=== PATIENT | male | born 1995 | race Caucasian/White ===

== ENCOUNTER 2018-06-23 14:38 | Emergency (ER) | payer BC ==
[2018-06-23] MEDS ORDERED: NS 500 ML IV ONE (15:25)
--- NOTE | 2018-06-23 15:25 | EDPHY ---
H & P Time Seen by Provider: 06/23/18 15:02 HPI/ROS: CHIEF COMPLAINT: Chest pain HISTORY OF PRESENT ILLNESS: Patient is a 22-year-old male with no past medical history presents to the emergency department with left-sided chest pain. Patient's symptoms started on Thursday. He initially developed fever and chills. On Thursday night/Thursday morning he began to developed left-sided chest pain. He also had multiple episodes of nonbloody emesis daily. He reports approximately 4 episodes per day. He was seen by [facility] on Thursday. There he had a negative chest x-ray. He is placed on Levaquin. Patient's symptoms continued. He went to an outside urgent care and was sent to the emergency department for further evaluation. The patient denies any recent travel. No leg pain or swelling. Patient's pain is slightly worse with movement. He has had no abdominal pain. REVIEW OF SYSTEMS: My complete review of systems is negative except as mentioned in the HPI. Past Medical/Surgical History: Negative Social history: The patient is a student at . Smoking Status: Never smoked Physical Exam: Vitals noted. GENERAL: Well-appearing, in no acute distress, alert. HEENT: Eyes normal to inspection, normal pharynx, no signs of dehydration. NECK: Normal, supple. RESPIRATORY: Clear to auscultation bilaterally, no rales, rhonchi or wheezing. Chest wall: Normal to appearance. No tenderness to palpation. CVS: Regular rate and rhythm, no rubs, murmurs, or gallops. ABDOMEN: Soft, nontender, nondistended. BACK: Normal to inspection, no CVA tenderness. SKIN: Normal color, no rash, warm, dry. No pallor. EXTREMITIES: No pedal edema, no calf tenderness, no Homans sign or cords, no joint swelling. NEURO/PSYCH: Alert and oriented, normal mood and affect, normal motor sensory exam. Constitutional: Initial Vital Signs Temperature (C) 36.6 C 06/23/18 14:41 Heart Rate 94 06/23/18 14:41 Respiratory Rate 18 06/23/18 14:41 Blood Pressure 134/83 H 06/23/18 14:41 O2 Sat (%) 97 06/23/18 14:41 O2 Delivery Mode Room Air Allergies/Adverse Reactions: No Known Allergies Allergy (Unverified 06/23/18 14:41) Home Medications: Medication Instructions Recorded Ibuprofen 600 mg PO Q6 #15 tablet 06/23/18 Levaquin 06/23/18 Medical Decision Making - Diagnostics Imaging Results: Imaging Impressions Chest X-Ray 06/23/18 15:25 Impression: Normal. Chest/Thorax CTA 06/23/18 16:10 Impression: No acute central or segmental pulmonary embolus. Findings and recommendations discussed with СЕРГЕЙ Sood ALEXANDER at 1649 hour, . ED Course/Re-evaluation: In the emergency department I discussed possible etiologies with the patient. I answered all his questions. IV was placed. Patient had EKG, chest x-ray and laboratory studies were ordered. Patient given Toradol 30 mg IV for pain control. EKG shows normal sinus rhythm, normal rate, normal axis, normal intervals. There are no ST or T-wave abnormalities. EKG is normal as interpreted by me. Patient's CBC and chemistry unremarkable. Troponin was negative. Patient's D- dimer is elevated at 1.06. I discussed the results with the patient. On recheck he states his pain was much better. Because of his elevated D-dimer CT angiogram was ordered. I discussed this with the patient and answered all his questions. CT angiogram: Please refer the dictated report. No acute disease noted. I rechecked the patient discussed results. I answered all his questions. Patient was feeling much better. His breath sounds were clear to auscultation bilaterally with no respiratory distress. He is given warnings prior to leaving. He will return with worsening symptoms. Differential Diagnosis: My differential includes but not limited to ACS, acute [place], pericarditis, myocarditis, dissection, aneurysm pneumonia, bronchitis, pulmonary embolus, pleurisy, pancreatitis, cholecystitis - Data Points Laboratory Results: Laboratory Results 06/23/18 15:10 06/23/18 15:10 06/23/18 06/23/18 06/23/18 15:48 15:10 15:10 WBC RBC Hgb Hct MCV MCH MCHC RDW Plt Count MPV Neut % (Auto) Lymph % (Auto) [place] % (Auto) Eos % (Auto) Baso % (Auto) Nucleat RBC Rel Count Absolute Neuts (auto) Absolute Lymphs (auto) Absolute Monos (auto) Absolute Eos (auto) Absolute Basos (auto) Absolute Nucleated RBC Immature Gran % Immature Gran # D-Dimer 1.06 ug/mLFEU H ug/mLFEU (0.00-0.50) Sodium 139 mEq/L mEq/L (135-145) Potassium 4.3 mEq/L mEq/L (3.3-5.0) Chloride 98 mEq/L mEq/L (97-110) Carbon Dioxide 24 mEq/l mEq/l (22-31) Anion Gap 17 mEq/L H mEq/L (8-16) BUN 16 mg/dL mg/dL (7-23) Creatinine 0.9 mg/dL mg/dL (0.7-1.3) Estimated GFR > 60 Glucose 98 mg/dL mg/dL (70-100) Calcium 9.9 mg/dL mg/dL (8.5-10.4) Total Bilirubin 1.2 mg/dL mg/dL (0.1-1.4) Conjugated Bilirubin 0.3 mg/dL mg/dL (0.0-0.5) Unconjugated Bilirubin 0.9 mg/dL mg/dL (0.0-1.1) AST 24 IU/L IU/L (17-59) ALT 28 IU/L IU/L (21-72) Alkaline Phosphatase 76 IU/L IU/L (38-126) POC Troponin I 0.01 ng/mL ng/mL (0.00-0.08) Total Protein 7.8 g/dL g/dL (6.3-8.2) Albumin 4.6 g/dL g/dL (3.5-5.0) Lipase 49 IU/L IU/L (23-300) 06/23/18 15:10 WBC 7.67 10^3/uL 10^3/uL (3.80-9.50) RBC 5.91 10^6/uL 10^6/uL (4.40-6.38) Hgb 18.3 g/dL H g/dL (13.7-17.5) Hct 51.2 % H % (40.0-51.0) MCV 86.6 fL fL (81.5-99.8) MCH 31.0 pg pg (27.9-34.1) MCHC 35.7 g/dL g/dL (32.4-36.7) RDW 12.0 % % (11.5-15.2) Plt Count 188 10^3/uL 10^3/uL (150-400) MPV 10.3 fL fL (8.7-11.7) Neut % (Auto) 74.9 % H % (39.3-74.2) Lymph % (Auto) 14.0 % L % (15.0-45.0) [place] % (Auto) 10.2 % % (4.5-13.0) Eos % (Auto) 0.1 % L % (0.6-7.6) Baso % (Auto) 0.5 % % (0.3-1.7) Nucleat RBC Rel Count 0.0 % % (0.0-0.2) Absolute Neuts (auto) 5.75 10^3/uL 10^3/uL (1.70-6.50) Absolute Lymphs (auto) 1.07 10^3/uL 10^3/uL (1.00-3.00) Absolute Monos (auto) 0.78 10^3/uL 10^3/uL (0.30-0.80) Absolute Eos (auto) 0.01 10^3/uL L 10^3/uL (0.03-0.40) Absolute Basos (auto) 0.04 10^3/uL 10^3/uL (0.02-0.10) Absolute Nucleated RBC 0.00 10^3/uL 10^3/uL (0-0.01) Immature Gran % 0.3 % % (0.0-1.1) Immature Gran # 0.02 10^3/uL 10^3/uL (0.00-0.10) D-Dimer Sodium Potassium Chloride Carbon Dioxide Anion Gap BUN Creatinine Estimated GFR Glucose Calcium Total Bilirubin Conjugated Bilirubin Unconjugated Bilirubin AST ALT Alkaline Phosphatase POC Troponin I Total Protein Albumin Lipase Medications Given: Discontinued Medications Sodium Chloride (Ns) 500 mls @ 1,000 mls/hr IV EDNOW ONE PRN Reason: Protocol Stop: 06/23/18 15:54 Last Admin: 06/23/18 15:45 Dose: 500 mls Point of Care Test Results: Chemistry 06/23/18 15:48 POC Troponin I 0.01 ng/mL ng/mL (0.00-0.08) Departure - Departure Disposition: Home, Routine, Self-Care Clinical Impression: Chest pain Qualifiers: Chest pain type: unspecified Qualified Code(s): R07.9 - Chest pain, unspecified Condition: Good Instructions: Chest Pain (ED) Additional Instructions: Return with increasing shortness of breath, chest pain or any other concerns. Referrals: [facility] Villeg[facility],. [Clinic] - 5-7 days, call for appt. Prescriptions: Ibuprofen 600 mg PO Q6 #15 tablet
[2018-06-23 15:40] LABS: PLATELET COUNT 188 10^3/uL (150-400)
[2018-06-23] MEDS ORDERED: IOPAMIDOL (ISOVUE 370) 100 ML BTL IV ONE (16:16)
[2018-06-23 17:37] VITALS: BP 112/85
--- NOTE | 2018-07-02 06:45 | CPEKG ---
Test Reason : OPEN Blood Pressure : / mmHG Vent. Rate : 082 BPM Atrial Rate : 082 BPM P-R Int : 157 ms QRS Dur : 104 ms QT Int : 368 ms P-R-T Axes : 059 055 049 degrees QTc Int : [address] elev, probable normal early repol pattern Confirmed by Kodak Shields ([id number] on 07/02/2018 6:45:26 AM Referred By: Confirmed By:Kodak Shields
== END 2018-06-23 17:35 | disposition home or self-care (01) ==
DX: R07.9 Chest pain, unspecified (principal); E86.9 Volume depletion, unspecified
CPT/HCPCS: 84484-PO; Q9967

== ENCOUNTER 2018-06-24 12:53 | Emergency (ER) | payer BC ==
--- NOTE | 2018-06-24 13:42 | EDPHY ---
H & P Time Seen by Provider: 06/24/18 13:23 HPI/ROS: CHIEF COMPLAINT: Chest pain HISTORY OF PRESENT ILLNESS: Patient is a 22 year old male who presents to the emergency department with ongoing"stomach pain."I saw the patient yesterday." We discussed his plan of care. Patient states he felt better after leaving the emergency department. He went to the store and but soup. After taking a bite of his soup he developed epigastric pain. He states he has had 4 episodes of nonbloody emesis. He continues to have epigastric pain radiating to his esophagus. The patient states"I think it's my stomach."It is slightly different from the pain he had yesterday. Yesterday the pain was more over his left chest. This is more in the epigastrium. He denies fevers or chills. No shortness of breath or cough. REVIEW OF SYSTEMS: My complete review of systems is negative except as mentioned in the HPI. Past Medical/Surgical History: Denies Past surgical history: Negative Smoking Status: Never smoked Physical Exam: 37.2, 150/85, 109, 16, 93% on room air GENERAL: No acute distress, alert. HEENT: Eyes normal to inspection, normal pharynx, moist mucous membranes. NECK: Normal, supple. RESPIRATORY: Clear to auscultation bilaterally, no rales, rhonchi or wheezing. No chest wall tenderness palpation. No rash. CVS: Regular rate and rhythm, no rubs, murmurs, or gallops. ABDOMEN: Soft, nontender, nondistended, no organomegaly. Benign BACK: Normal to inspection, no CVA tenderness. SKIN: Normal color, no rash, warm, dry. No pallor. EXTREMITIES: No pedal edema, no calf tenderness, no Homans sign or cords, no joint swelling. NEURO/PSYCH: Alert and oriented, normal mood and affect, normal motor sensory exam. Constitutional: Initial Vital Signs Temperature (C) 37.2 C 06/24/18 12:56 Heart Rate 109 H 06/24/18 12:56 Respiratory Rate 16 06/24/18 12:56 Blood Pressure 150/85 H 06/24/18 12:56 O2 Sat (%) 93 06/24/18 12:56 O2 Delivery Mode Room Air Allergies/Adverse Reactions: No Known Allergies Allergy (Unverified 06/23/18 14:41) Home Medications: Medication Instructions Recorded Ibuprofen 600 mg PO Q6 #15 tablet 06/23/18 Levaquin 06/23/18 Famotidine [Pepcid 20 MG (*)] 20 mg PO BID #10 tab 06/24/18 Ondansetron Odt [Zofran Odt 4 mg 4 mg PO Q4PRN PRN #7 tab 06/24/18 (*)] Medical Decision Making ED Course/Re-evaluation: In the emergency department I discussed possible etiologies with the patient. I answered all his questions. An IV was placed. Patient was given normal saline 1 L IV for hydration. Patient was given Zofran 4 mg IV for his reported nausea vomiting. Patient was given a GI cocktail. EKG shows normal sinus rhythm, normal rate, normal axis, normal intervals. There are no ST or T-wave abnormalities. EKG is normal as interpreted by me. CBC is normal. Chemistries unremarkable. LFTs are normal. Rechecked the patient. He is feeling better. No significant distress on exam. Patient was given warnings. He will follow up with Gastroenterology in work. Patient will take Pepcid as prescribed. He is also given a prescription for Zofran. I will take Maalox as needed. Patient will return with worsening symptoms. Of note, the patient self discontinued his Levaquin. Differential Diagnosis: My differential includes but is not limited to GERD, peptic ulcer disease, perforation, pancreatitis, cholecystitis, PE, dissection, aneurysm - Data Points Laboratory Results: Laboratory Results 06/24/18 14:00 06/24/18 14:00 06/24/18 06/24/18 06/24/18 14:00 14:00 14:00 WBC 5.81 10^3/uL 10^3/uL (3.80-9.50) RBC 5.55 10^6/uL 10^6/uL (4.40-6.38) Hgb 17.3 g/dL g/dL (13.7-17.5) Hct 48.3 % % (40.0-51.0) MCV 87.0 fL fL (81.5-99.8) MCH 31.2 pg pg (27.9-34.1) MCHC 35.8 g/dL g/dL (32.4-36.7) RDW 11.9 % % (11.5-15.2) Plt Count 202 10^3/uL 10^3/uL (150-400) MPV 9.9 fL fL (8.7-11.7) Neut % (Auto) 68.4 % % (39.3-74.2) Lymph % (Auto) 16.4 % % (15.0-45.0) [place] % (Auto) 14.1 % H % (4.5-13.0) Eos % (Auto) 0.3 % L % (0.6-7.6) Baso % (Auto) 0.5 % % (0.3-1.7) Nucleat RBC Rel Count 0.0 % % (0.0-0.2) Absolute Neuts (auto) 3.97 10^3/uL 10^3/uL (1.70-6.50) Absolute Lymphs (auto) 0.95 10^3/uL L 10^3/uL (1.00-3.00) Absolute Monos (auto) 0.82 10^3/uL H 10^3/uL (0.30-0.80) Absolute Eos (auto) 0.02 10^3/uL L 10^3/uL (0.03-0.40) Absolute Basos (auto) 0.03 10^3/uL 10^3/uL (0.02-0.10) Absolute Nucleated RBC 0.00 10^3/uL 10^3/uL (0-0.01) Immature Gran % 0.3 % % (0.0-1.1) Immature Gran # 0.02 10^3/uL 10^3/uL (0.00-0.10) PT 14.2 SEC SEC (12.0-15.0) INR 1.08 (0.83-1.16) APTT 29.8 SEC SEC (23.0-38.0) Sodium 141 mEq/L mEq/L (135-145) Potassium 4.6 mEq/L mEq/L (3.3-5.0) Chloride 98 mEq/L mEq/L (97-110) Carbon Dioxide 27 mEq/l mEq/l (22-31) Anion Gap 16 mEq/L mEq/L (8-16) BUN 15 mg/dL mg/dL (7-23) Creatinine 0.9 mg/dL mg/dL (0.7-1.3) Estimated GFR > 60 Glucose 103 mg/dL H mg/dL (70-100) Calcium 9.8 mg/dL mg/dL (8.5-10.4) Total Bilirubin 1.0 mg/dL mg/dL (0.1-1.4) Conjugated Bilirubin 0.3 mg/dL mg/dL (0.0-0.5) Unconjugated Bilirubin 0.7 mg/dL mg/dL (0.0-1.1) AST 34 IU/L IU/L (17-59) ALT 35 IU/L IU/L (21-72) Alkaline Phosphatase 67 IU/L IU/L (38-126) Total Protein 7.9 g/dL g/dL (6.3-8.2) Albumin 4.6 g/dL g/dL (3.5-5.0) Lipase 44 IU/L IU/L (23-300) Medications Given: Discontinued Medications Al Hydroxide/Mg Hydroxide (Maalox Susp) 30 ml PO ONCE ONE Stop: 06/24/18 13:45 Last Admin: 06/24/18 14:02 Dose: 30 ml Hyoscyamine Sulfate (Levsin, Hyomax-Sl) 0.25 mg PO ONCE ONE Stop: 06/24/18 13:45 Last Admin: 06/24/18 14:03 Dose: 0.25 mg Sodium Chloride (Ns) 1,000 mls @ 0 mls/hr IV EDNOW ONE; Wide Open PRN Reason: Protocol Stop: 06/24/18 13:45 Last Admin: 06/24/18 14:03 Dose: 1,000 mls Lidocaine (Lidocaine 2% Viscous) 15 ml PO ONCE ONE Stop: 06/24/18 13:45 Last Admin: 06/24/18 14:02 Dose: 15 ml Ondansetron HCl (Zofran) 4 mg IVP EDNOW ONE Stop: 06/24/18 13:45 Last Admin: 06/24/18 14:03 Dose: 4 mg Departure - Departure Disposition: Home, Routine, Self-Care Clinical Impression: Abdominal pain Qualifiers: Abdominal location: epigastric Qualified Code(s): R10.13 - Epigastric pain Condition: Good Instructions: Acute Abdominal Pain (ED) Additional Instructions: Return with increasing pain, fever, recurrent vomiting or any other concerns. Take Pepcid daily as prescribed. Use Maalox as needed for stomach burning sensation. Use your nausea medicine as needed. Call to make an appointment with a district manager primary care sales. You been given contact information for their office. Referrals: [facility],. [Clinic] - 2-3 days without fail Prescriptions: Famotidine [Pepcid 20 MG (*)] 20 mg PO BID #10 tab Ondansetron Odt [Zofran Odt 4 mg (*)] 4 mg PO Q4PRN PRN #7 tab PRN Reason: For Nausea & Vomiting
[2018-06-24] MEDS: LIDOCAINE 2% VISCOUS 15 ML UDCUP PO ONE (14:02)
[2018-06-24] MEDS: MAG HYDROX/AL HYDROX/SIMETH 30 ML UDCUP PO ONE (14:02)
[2018-06-24] MEDS: HYOSCYAMINE SULFATE 0.125 MG TAB PO ONE (14:03)
[2018-06-24] MEDS: NS 1,000 ML IV ONE (14:03)
[2018-06-24] MEDS: ONDANSETRON 4 MG/2 ML VIAL IVP ONE (14:03)
[2018-06-24] MEDS ORDERED: HYOSCYAMINE SULFATE 0.125 MG TAB ONE (14:08)
[2018-06-24 14:14] LABS: PLATELET COUNT 202 10^3/uL (150-400)
[2018-06-24 14:22] LABS: INR 1.08 (0.83-1.16); PROTIME(PATIENT) 14.2 SEC (12.0-15.0)
[2018-06-24 15:20] VITALS: BP 160/84
--- NOTE | 2018-06-24 21:02 | CPEKG ---
Test Reason : OPEN Blood Pressure : / mmHG Vent. Rate : 079 BPM Atrial Rate : 080 BPM P-R Int : 160 ms QRS Dur : 096 ms QT Int : 377 ms P-R-T Axes : 069 069 057 degrees QTc Int : 433 ms Sinus rhythm Confirmed by Lety Us ([id number]) on 06/24/2018 9:02:17 PM Referred By: Confirmed By:Lety Us
== END 2018-06-24 15:18 | disposition home or self-care (01) ==
DX: R10.13 Epigastric pain (principal); E86.9 Volume depletion, unspecified
CPT/HCPCS: 96374; J2405

== ENCOUNTER 2018-06-25 13:29 | Inpatient (IN) | payer BC ==
[2018-06-25] MEDS ORDERED: NS 1,000 ML IV ONE (13:51)
[2018-06-25] MEDS ORDERED: FAMOTIDINE 20 MG/NACL 50 ML IV ONE (13:51)
[2018-06-25] MEDS ORDERED: ONDANSETRON 4 MG/2 ML VIAL IVP ONE (13:51)
[2018-06-25] MEDS ORDERED: MAG HYDROX/AL HYDROX/SIMETH 30 ML UDCUP PO ONE (13:51)
[2018-06-25] MEDS ORDERED: LIDOCAINE 2% VISCOUS 15 ML UDCUP PO ONE (13:51)
[2018-06-25] MEDS ORDERED: HYOSCYAMINE SULFATE 0.125 MG TAB PO ONE (13:51)
--- NOTE | 2018-06-25 13:51 | EDPHY ---
H & P Time Seen by Provider: 06/25/18 13:36 HPI/ROS: CHIEF COMPLAINT: Epigastric pain the HISTORY OF PRESENT ILLNESS: Patient is a 22-year-old male who presents emergency department with ongoing epigastric pain. The patient was seen last 2 days by me for similar symptoms. The 1st day he had mild left-sided chest pain. At that time he had negative CT angiogram and was ultimately discharged home after feeling better. Yesterday came in with epigastric pain. His laboratory studies were unremarkable. He felt better after receiving a GI cocktail. He was given follow-up with Gastroenterology. Today he returns with ongoing epigastric discomfort. He has had multiple episodes of nonbloody vomiting. Patient denies fevers or chills. No chest pain or shortness of breath. REVIEW OF SYSTEMS: My complete review of systems is negative except as mentioned in the HPI. Past Medical/Surgical History: Negative Past surgical history: Negative Social history: Patient is a student at [employer] Smoking Status: Never smoked Physical Exam: 36.6, 125/70, 81, 16, 98% on room air GENERAL: No acute distress, alert. HEENT: Eyes normal to inspection, normal pharynx, no signs of dehydration. NECK: [No thyromegaly, no lymphadenopathy, supple. RESPIRATORY: Clear to auscultation bilaterally, no rales, rhonchi or wheezing. CVS: Regular rate and rhythm, no rubs, murmurs, or gallops. ABDOMEN: Soft, mild epigastric tenderness to palpation with no rebound or guarding, nondistended, no organomegaly. BACK: Normal to inspection, no CVA tenderness. SKIN: Normal color, no rash, warm, dry. No pallor. EXTREMITIES: No pedal edema, no calf tenderness, no Homans sign or cords, no joint swelling. NEURO/PSYCH: Alert and oriented, normal mood and affect, normal motor sensory exam. Constitutional: Initial Vital Signs Temperature (C) 36.6 C 06/25/18 13:32 Heart Rate 81 06/25/18 13:32 Respiratory Rate 16 06/25/18 13:32 Blood Pressure 125/70 H 06/25/18 13:32 O2 Sat (%) 98 06/25/18 13:32 O2 Delivery Mode Room Air Allergies/Adverse Reactions: No Known Allergies Allergy (Verified 06/25/18 13:31) Home Medications: Medication Instructions Recorded Pepcid 06/25/18 Zofran Odt 4 mg (*) 06/25/18 Medical Decision Making ED Course/Re-evaluation: In the emergency department discussed possible etiologies with the patient I answered all his questions. An IV was placed. Laboratory studies were obtained. Ultrasound of the right upper quadrant was ordered. I discussed the case with the patient's parents at his request. I answered all their questions. Differential Diagnosis: My differential includes but not limited to pancreatitis, cholecystitis, cholangitis, hiatal hernia, GERD, peptic ulcer disease, obstruction, perforation , dissection, aneurysm, PE, pneumonia, bronchitis Departure - Departure Disposition: [facility] Inpatient Acute Clinical Impression: Abdominal pain Qualifiers: Abdominal location: epigastric Qualified Code(s): R10.13 - Epigastric pain Condition: Good
[2018-06-25 14:01] LABS: PLATELET COUNT 210 10^3/uL (150-400)
[2018-06-25 14:48] LABS: INR 1.07 (0.83-1.16); PROTIME(PATIENT) 14.1 SEC (12.0-15.0)
[2018-06-25] MEDS ORDERED: PROMETHAZINE HCL 25 MG/ML INJ IVP PRN (15:44)
[2018-06-25] MEDS ORDERED: IBUPROFEN 200 MG TAB PO PRN (15:44)
[2018-06-25] MEDS: LR 1,000 ML IV SCH (17:45)
--- NOTE | 2018-06-25 18:58 | GHP ---
[f rep st] HISTORY AND PHYSICAL DATE OF ADMISSION: 06/25/2018 PRIMARY CARE PROVIDER: [facility]. CHIEF COMPLAINT: Epigastric pain. HISTORY OF PRESENT ILLNESS: The patient is a pleasant 22-year-old gentleman with no major past medic al history who has presented to the emergency room 3 times over the past several days with complaints of epigastric pain. The patient states that he had viral-like symptoms approximately 1 week ago, de scribed as fever, chills, nasal congestion and cough. These symptoms have largely abated. He also d eveloped though, in association with these symptoms, nausea with vomiting. He states that he has vom ited approximately 4 times over the past 4 days. The emesis has been nonbloody in nature. He did no te having yesterday a bowel movement that appeared black in nature, but there has been no significant diarrhea or bloody stools. In regard to the epigastric pain, he does not necessarily note a definit e positional nature where it worsens when he lies down flat, which would be potentially consistent wi th pericarditis. This diagnosis was entertained and he was tried on NSAIDs over the past few days. He states, however, he was not taking any NSAIDs otherwise in the prior weeks. He also describes a d iscomfort when he is drinking liquids that goes down his esophagus and into his stomach. There has b een no right upper quadrant abdominal pain. With the persistent nature of his symptoms and uncertain diagnosis he is being admitted for further evaluation and treatment. PAST MEDICAL HISTORY: No major past medical history. PAST SURGICAL HISTORY: No major past surgical history. MEDICATIONS: No current prescribed medications. ALLERGIES: No known drug allergies. FAMILY HISTORY: Mother and father are both living and reportedly healthy. There is no cardiac or in testinal issues that he is aware of that run in the family. No history of Helicobacter pylori in the family is known either. SOCIAL HISTORY: Patient is a nonsmoker. He is currently a student at . He denies any daily regul ar use of marijuana. REVIEW OF SYSTEMS: CONSTITUTIONAL: Positive for fevers and chills, which have resolved. ENT: Posi tive for recent upper respiratory-like illness. CARDIOVASCULAR: No complaints of palpitations or sy ncope. Chest pain is localized around the lower rib cage just left of the sternum. RESPIRATORY: No complaints of shortness of breath or pleuritic-type chest pains. He denies any definite positional change in his chest pain with lying down flat or sitting upright. GI: No history of any GI bleeds o r H pylori. Otherwise as detailed above in the HPI. : No report of any difficulty with urination . NEUROLOGIC: No complaints of any headaches or focal weakness. HEMATOLOGIC: No history of any de ep vein thrombosis or pulmonary embolism. PSYCHIATRIC: No history of anxiety or depression. ENDOCR INE: No heat intolerance or polyuria. SKIN: No new skin rashes. MUSCULOSKELETAL: No focal joint pains. PHYSICAL EXAM: VITAL SIGNS: Temperature 36.6, blood pressure 125/70, heart rate 81, respirations 16 , saturating 98% on room air. GENERAL: Patient appears comfortable. He is awake, alert, conversant , no acute distress. HEENT: Extraocular movements appear intact. There is no scleral icterus appar ent. NECK: Supple. No thyroid enlargement noted. CHEST: Clear to auscultation with normal respir atory effort. HEART: Regular. No murmurs appreciated. No rubs noted. No chest discomfort elicite d when lying down flat in his bed. ABDOMEN: Soft, nontender, nondistended. Normal bowel sounds. H e tolerated good pressure at the epigastrium. : No Argueta catheter in place. EXTREMITIES: No sig nificant pitting edema or calf pain with palpation. NEUROLOGIC: Cranial nerves 2 through 12 grossly intact with 5 out of 5 strength in extremities. LABS: White blood cell count 6, hemoglobin 16, platelets 210. INR 1.0. Sodium 142, potassium 4.2, chloride 100, bicarb 26, BUN 14, creatinine 0.9, glucose of 99, AST 28, ALT 34, alkaline phosphatase 64, bilirubin 1.0, lipase 66. ASSESSMENT/PLAN: 1. Epigastric pain--the patient localized the pain around the rib cage, left of the sternum, but thierno per down in his body, not superficially and there is no pain elicited with palpation along his rib ca ge. He has had a CT angiography of chest, which does not show any evidence of pulmonary emboli and n o other concerning findings otherwise, but I did consider the possibility of pericarditis. There may be some hint of slight ST-segment elevations in his ECG. He did have a negative troponin on his sarina or hospitalization, but did have a recent upper respiratory illness, which could be associated with p ericarditis. Other considerations include esophagitis with his recent nausea and vomiting, also renetta farzad ulcer or upper gastrointestinal bleeding in light of the melena described. I reviewed the case w ith Dr. Helton with Gastroenterology and we will place him on intravenous Protonix overnight and reas sess his symptoms tomorrow morning. We will also repeat a hemoglobin tomorrow to evaluate for any si gnificant drop. An echocardiogram has also been ordered to evaluate for any significant pericardial effusion or evidence of potential pericarditis. I have ordered a Helicobacter pylori stool antigen t est and we will keep him n.p.o. after midnight in case we do end up proceeding with endoscopy tomorro w. 2. Melena--possibly related to upper gastrointestinal bleed. Recheck hemoglobin in the morning. 3. Nausea--p.r.n. Phenergan. 4. Deep venous thrombosis prophylaxis--low risk, so will hold heparin, Lovenox, especially in light of concern for bleeding. DISPOSITION: I will admit him under observation status. /[id number]/MODL
[2018-06-25] MEDS: PANTOPRAZOLE SODIUM 40 MG VIAL IVP SCH (20:00)
[2018-06-26] MEDS: LR 1,000 ML IV SCH ×2 (02:09→09:04)
[2018-06-26 05:44] LABS: PLATELET COUNT 222 10^3/uL (150-400)
[2018-06-26] MEDS: PANTOPRAZOLE SODIUM 40 MG VIAL IVP SCH ×2 (09:04→21:01)
[2018-06-26] MEDS ORDERED: LR 1,000 ML IV ONE (09:55)
[2018-06-26] MEDS ORDERED: PROPOFOL/EMULSION 500 MG/50 ML BOTTLE IV ONE (10:13)
[2018-06-26] MEDS ORDERED: DEXAMETHASONE 4 MG/ML VIAL IVP PRN (10:21)
[2018-06-26] MEDS ORDERED: ONDANSETRON 4 MG/2 ML VIAL IVP PRN (10:21)
[2018-06-26] MEDS ORDERED: fentaNYL 100 MCG/2 ML INJ IVP PRN (10:21)
[2018-06-26] MEDS ORDERED: NALOXONE HCL 0.4 MG/ML INJ IVP PRN (10:21)
[2018-06-26] MEDS ORDERED: ALBUTEROL 3 ML DEYVIAL IH PRN (10:21)
--- NOTE | 2018-06-26 10:21 | PDANEPAE ---
ANE History of Present Illness here for EGD ANE Past Medical History - Cardiovascular History Hx Hypertension: No Hx Arrhythmias: No Hx Chest Pain: No Hx Coronary Artery / Peripheral Vascular Disease: No Hx CHF / Valvular Disease: No Hx Palpitations: No - Pulmonary History Hx COPD: No Hx Asthma/Reactive Airway Disease: No Hx Recent Upper Respiratory Infection: No Hx Oxygen in Use at Home: No Hx Sleep Apnea: No - Endocrine History Hx Diabetes: No Hypothyroid: No Hyperthyroid: No - Renal History Hx Renal Disorders: No - Liver History Hx Hepatic Disorders: No - Chronic Pain History Chronic Pain: No ANE Review of Systems Review of systems is: negative Review of Systems: - Exercise capacity Exercise capacity: <4 METS ANE Patient History - Allergies Allergies/Adverse Reactions: No Known Allergies Allergy (Verified 06/25/18 13:31) - Home Medications Home medications: home medication list seen and reviewed Home Medications: Famotidine [Pepcid 20 MG (*)] 20 mg PO BID 06/25/18 [Last Taken 06/25/18] Ibuprofen [Motrin (*)] 600 mg PO QID PRN 06/25/18 [Last Taken 06/22/18] Ondansetron Odt [Zofran Odt 4 mg (*)] 4 mg PO Q4HRS PRN 06/25/18 [Last Taken 13:00] - NPO status NPO Status: no food or drink >8 hours - Smoking Hx Smoking Status: Never smoked ANE Labs/Vital Signs - Labs Result Diagrams: 06/26/18 05:05 06/26/18 05:05 - Vital Signs Vital Signs: reviewed preoperatively; see RN documention for details Blood Pressure: 120/57 Heart Rate: 73 Respiratory Rate: 97 O2 Sat (%): 94 Height: 185.42 cm Weight: 75.75 kg ANE Physical Exam - Airway Neck exam: FROM Mallampati Score: Class 1 - Pulmonary Pulmonary: no respiratory distress - Cardiovascular Cardiovascular: regular rate and rhythym - ASA Status ASA Status: I ANE Anesthesia Plan Anesthesia Plan: GA with mask
[2018-06-26] MEDS ORDERED: PROPOFOL 200 MG/20 ML VIAL ONE ×2 (10:41→10:44)
--- NOTE | 2018-06-26 10:55 | GIREPORT ---
[facility] Surgical Services - Endoscopy Department Patient Name: Betzy Hi Procedure Date: 06/26/2018 10:07 AM Patient Type: Inpatient Attending MD/ ER Physician: Virgil Yoder MD Procedure: Upper GI endoscopy Indications: Unexplained chest pain, Nausea with vomiting Providers: Virgil Yoder MD Medicines: Propofol per Anesthesia Complications: No immediate complications. Description of Procedure: After obtaining informed consent, the endoscope was passed under direct vision. Throughout the procedure, the patient's blood pressure, pulse, and oxygen saturations were monitored continuously. The Endoscope was intro duced through the mouth, and advanced to the second part of duodenum. The [facility] er GI endoscopy was accomplished without difficulty. The patient tolerated th e procedure well. Findings: Many cratered and superficial esophageal ulcers with no bleeding and no stigmata of recent bleeding were found 20 to 40 cm from the incisors. T he largest lesion was 6 mm in largest dimension. Biopsies were taken with a cold forceps for histology. The entire examined stomach was normal. Biopsies were taken with a cold forceps for histology. The examined duodenum was normal. Estimated Blood Loss: Estimated blood loss: none. Post Op Diagnosis: - Non-bleeding esophageal ulcers. Biopsied. R/O viral esophagitis. - Normal stomach. Biopsied. R/O HP gastritis. - Normal examined duodenum. Recommendation: - [facility]. - Advance diet as tolerated. - Await pathology results. - Continue present medications. - The findings and recommendations were discussed with the patient. Attending Participation: I personally performed the entire procedure. Virgil Yoder MD Virgil Yoder MD 06/26/2018 10:54:46 AM This report has been signed electronicallyJolucrecia Yoder MD Number of Addenda: 0 Note Initiated On: 06/26/2018 10:07 AM [email or web address]
--- NOTE | 2018-06-26 10:55 | POSTANESTH ---
Post Anesthetic Evaluation Cardiovascular Status: Normal, Stable Respiratory Status: Normal, Stable Level of Consciousness/Mental Status: Moderately Sleepy Pain Control: Adequate, Prn Tx Ordered Nausea/Vomiting Control: Adequate, Prn Tx Ordered Complications Possibly Related to Anesthesia: None Noted
--- NOTE | 2018-06-26 14:25 | ECHO ---
[email or web address] [address] [address] Main: [phone] Fax: Transthoracic Echocardiogram Name: TRISTA VELASQUEZ MR#: [id number] Study Date: 06/26/2018 Study Time: 09:55 AM Date of : 1995 Age: 22 year(s) Height: 172.7 cm (68 in.) Weight: 75.75 kg (167 lb.) BSA: 1.89 m2 Gender: Male Examination: Echo Indication: chest, epigastric pain, ? evidence Image Quality: Adequate Contrast: Requested by: Patrice Means BP: 120 mmHg/57 mmHg Heart Rate: Rhythm: Indication: chest, epigastric pain, ? evidence Procedure Staff Wire Chief: Kami Dao [facility] Reading Physician: Javi Padilla MD Requesting Provider: Conclusions: Normal size left ventricle. No LV hypertrophy. EF is 64 %. No regional wall motion abnormality. Normal diastolic LV function. Normal size right ventricle. Normal RV function. The left atrium is normal in size. The right atrium is borderline dilated. The mitral valve is normal in appearance and function. The tricuspid valve is normal in appearance and function. Right ventricular systolic pressure measures 29mmHg. No pericardial effusion. Measurements: Chambers Valvular Assessment AV/MV Valvular Assessment TV/PV Normal Normal Normal Name Value Range Name Value Range Name Value Range Ao Lynne (2D): 2.7 cm (1.4 cm-2.6 AV Vmax: 1.43 m/s (1 m/s-1.7 TR Vmax: 2.43 mm/s ( - ) cm) m/s) TR PGmax: 24 mmHg ( - ) IVSd (2D): 0.8 cm (0.6 cm-1.1 AV maxP mmHg ( - ) syst. PAP: 29 mmHg ( - ) cm) AV meanP mmHg ( - ) PV Vmax: 0.87 m/s (0.6 m/s-0.9 LVDd (2D): 5.0 cm (4.2 cm-5.9 SHAMEKA (VTI): 2.5 cm ( - ) m/s) cm) MV E Vmax: 0.66 m/s ( - ) PV PGmax: 3 mmHg ( - ) LVDs (2D): 3.1 cm (2.1 cm-4 MV A Vmax: 0.38 m/s ( - ) cm) MV E/A: 1.74 ( - ) LVPWd (2D): 1.0 cm (0.6 cm-1 cm) MV PHT: 0.072 s ( - ) LVOTd 2.1 cm 2.1 cm mm MVA (PHT): 3.1 s ( - ) LVEF (BP): 64 % (>=55 %) Patient: TRISTA VELASQUEZ Study Date: 06/26/2018 Page 1 of 2 09:55 AM RVDd(2D): 2.5 cm (1.9 cm-3.8 cmmm) Continued Measurements: Chambers Valvular Assessment AV/MV Valvular Assessment TV/PV Name Value Name Value Name Value LADs: 3.3 cm MV DecTime: 218 m/s CVP (est.): 5 mmHg LADs Lon.4 cm MV E' Septal: 0.12 m/s LA Area: 15.3 cm2 MV E/E' Septal: 5.50 LA Volume: 35 ml MV E/E' Lateral: 3.70 LA Volume Index: 18.5 ml/m2 Additional Vessels Name Value Ao Ascendin.8 cm Inferior Vena Cava: 1.2 cm Findings: Left Ventricle: Normal size left ventricle. No LV hypertrophy. Normal global systolic LV function. EF is 64 %. No regional wall motion abnormality. Normal diastolic LV function. Right Ventricle: Normal size right ventricle. Normal RV function. Left Atrium: The left atrium is normal in size. Right Atrium: The right atrium is borderline dilated. Mitral Valve: The mitral valve is normal in appearance and function. Mild mitral valve regurgitation is present. No mitral stenosis is present. Aortic Valve: The aortic valve is tri-leaflet. Trivial aortic valve regurgitation. No aortic valve stenosis is present. Tricuspid Valve: The tricuspid valve is normal in appearance and function. Mild tricuspid regurgitation is present. The pulmonary artery pressure is normal. Right ventricular systolic pressure measures 29mmHg. Pulmonic Valve: The pulmonic valve is normal in appearance and function. There is no pulmonic regurgitation seen. Aorta: The aorta is normal. Normal size aortic root measuring 2.7 cm. Normal size ascending aorta measuring 2.8 cm. IVC: The IVC is normal sized. Pericardium: No pericardial effusion. No pleural effusion. (No Signature Object) Patient: TRISTA VELASQUEZ Study Date: 06/26/2018 Page 2 of 2 09:55 AM [id number]
--- NOTE | 2018-06-26 15:31 | ASMTCMCOM ---
CM Note CM Note Notes: Pt is a student at who is admitted with epigastric pain. Anticipate he will dc home independent when medically stable. CM availble for any changes. DC Plan: Independent Date Signed: 06/26/2018 03:30 PM Electronically Signed By:Tracie Hernández RN
[2018-06-26] MEDS: D5W IV SCH ×2 (15:59→21:01)
[2018-06-26] MEDS: ACYCLOVIR IV SCH ×2 (15:59→21:01)
--- NOTE | 2018-06-26 17:17 | GCON ---
[f rep st] CONSULTATION DATE OF CONSULTATION: 06/26/2018 REQUESTING PROVIDER: Patrice Means MD. REASON FOR CONSULTATION: Epigastric abdominal pain, nausea, vomiting, and questionable melena. HISTORY OF PRESENT ILLNESS: Betzy is a 22-year-old gentleman, previously in good health, who states that starting 5 days prior to admission, he developed a lower mid sternal chest discomfort without radiation and epigastric abdominal discomfort followed by episodes of nausea and vomiting. These episodes persisted over the next 4 days. He denied any hematemesis. He had 1 bowel movement the day prior to admission that appeared partly black. This bowel movement was not foul smelling and did not [place] blood. He had no further episodes of black stool. He has had no bowel movement since admission. Preceding these symptoms, he had a 4-5 day period of binge drinking with 10 mixed drinks or beers per day. He has had no prior history of peptic ulcer disease. He has had no history of alcohol withdrawal symptoms. He has had no difficulties with work or the law related to drinking. CURRENT MEDICATIONS: OTC "acid suppressor" with the onset of his symptoms. ALLERGIES: No known drug allergies. PAST MEDICAL HISTORY: Unremarkable. PAST SURGICAL HISTORY: Unremarkable. FAMILY HISTORY: Negative for peptic ulcer disease or GI malignancies. SOCIAL HISTORY: He is a nonsmoker. He is a student at . He denies regular use of marijuana. He does have a history of binge alcohol drinking. REVIEW OF SYSTEMS: Positive for intermittent fevers and chills prior to admission, which has since resolved. Positive for occasional coughing spells with the onset of chest/epigastric pain, otherwise negative for comprehensive review of systems. PHYSICAL EXAM: VITAL SIGNS: Temperature 36.5, pulse 73, regular, blood pressure 120/57, respiratory rate 12, O2 saturation 94% on room air. GENERAL: A well-developed, well-nourished gentleman in no apparent distress. INTEGUMENT : Clear tattoo on left biceps. HEENT: Head atraumatic, normocephalic. Pupils equal, round, reactive to light. EOMs intact. Sclerae nonicteric. Nares patent. Mucous membranes moist. Dentition good. NECK: Supple. Trachea was midline. No palpable lymphatics. No cervical or axillary adenopathy palpable. PULMONARY Lungs were clear to percussion auscultation. CARDIOVASCULAR: Regular rhythm rate. Normal S1, S2 without murmur. Peripheral pulses strong bilaterally. No pedal edema. GASTROINTESTINAL: Abdomen supple, positive bowel sounds. No liver or spleen tip palpable. Mild guarding to compression in the epigastrium. No palpable mass or rebound. No fluid wave noted. EXTREMITIES: Without deformity. NEURO: Patient was alert, oriented x3. There were no focal neurologic deficits. LABS: White count 7.16, hemoglobin 15.7, hematocrit 44.0, MCV 31.1, MCHC 35.7, RDW 11.9, platelets 222,000, pro time 14.1, INR 1.07, PTT 28.7. Electrolytes normal. BUN 12, creatinine 0.9, calcium 9.1. LFTs normal. Lipase normal at 66. Urinalysis negative. IMPRESSION: Lower substernal and epigastric pain of unclear etiology in a gentleman with recent binge drinking, followed by nausea, vomiting, and 1 dark stool. Differential diagnosis includes acute peptic ulcer disease, alcoholic gastritis, Michelle-Mixon tear, less likely pancreatitis with normal lipase. Also in the differential, per hospitalist, is pericarditis. RECOMMENDATIONS: 1. NPO. 2. IV antiemetics and PPI therapy. 3. We will proceed with esophagogastroduodenoscopy this morning with propofol anesthesia to rule out active peptic ulcer disease, gastritis, or Michelle-Mixon tear. /[id number]/MODL MTDD
--- NOTE | 2018-06-26 17:27 | GCON ---
[f rep st] CONSULTATION INFECTIOUS DISEASE CONSULTATION DATE OF CONSULTATION: 06/26/2018 REASON FOR CONSULTATION: Massive esophageal ulceration and severe odynophagia, query therapy. HISTORY OF PRESENT ILLNESS: A 22-year-old male with no medical problems who attends [employer] with a major in business, who is originally from [place], whose problems date back to June 02, when he developed a flu-like illness with subjective fevers, which lasted through Thursday. On , the patient developed severe odynophagia and a severe burning in his chest with eating, inclu ding liquids. The only thing that resolved the pain at home was vomiting. He did get some relief by some medicines that he was given in the emergency room. Patient did present to the emergency room 3 times, with the 3rd time being admitted. Patient's dysphagia is so severe, he is spitting saliva an d not able to swallow his saliva. He has lost 17 pounds and describes a dry cough, which he really a ttributes to his inability to manage his saliva. On the , patient had a CT of his chest that was negative for pulmonary embolus. GI was consulted and patient underwent upper endoscopy, which showe d significant ulcerations throughout the esophagus with significant coalescing of punched-out ulcerat kaushal lesions. They were reviewed by me through the pictures that the furniture manager took. 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 He recently moved houses and has been doing a lot of cleaning. He has not had sex for 1.5 months and denies oral sex at that time. Approximately 2 weeks ago, he did snort cocaine. He de nies specific sick contacts and has not been in contact with children. No international travel excep t going to [employer] for a bachelor constitution party. PAST MEDICAL HISTORY: None. PAST SURGICAL HISTORY: None. MEDICATIONS: Patient takes fish oil as an outpatient and has received typical medicines to use his h eartburn symptoms here at the hospital. FAMILY HISTORY: His parents are alive and healthy. No cardiac or GI illnesses that he is aware of. ALLERGIES: NKDA. SOCIAL HISTORY: Nonsmoker. He uses alcohol and other drug history as per HPI. He describes himself as heterosexual. Last HIV testing last spring. REVIEW OF SYSTEMS: A complete 10-point review of systems was performed and is negative except as men tioned in the HPI. Specifically, patient denied symptoms. Pertinent negatives include no diarrhe a. No abdominal pain. No rash. No oral ulcerations. No headache, fever. PHYSICAL EXAM: VITAL SIGNS: Blood pressure 114/51, heart rate 66, respiratory rate 15, saturation 9 3% on room air, temperature 36.6. He has been afebrile. GENERAL: This is a pleasant young male sit ting up in bed, no acute distress. Able to carry on a conversation without difficulty. HEENT: Orop harynx, good dentition. Moist mucous membranes. No oral ulcerations. Conjunctivae without abnormal ity. NECK: Supple. No lymphadenopathy. CARDIOVASCULAR: Regular rate no murmurs. CHEST: Clear t o auscultation bilaterally. ABDOMEN: Soft, nontender. Bowel sounds are present. No hepatosplenome valente. EXTREMITIES: No clubbing, cyanosis, or edema. SKIN: No rashes. NEUROLOGIC: He is moving a ll 4 extremities equally. No focal deficits were noted. LABORATORY: White count 7.1, hematocrit 44, platelets of 222, 65% neutrophils, 20% lymphocytes. Cre atinine 0.9. LFTs: AST 25, ALT 32, albumin 3.7. Urinalysis was negative. Biopsies were taken at t sonam of EGD and are pending. ASSESSMENT AND PLAN: This is a 22-year-old male with no medical problems with transient flu-like ill ness lasting 2 days and who developed severe odynophagia with EGD showing extensive ulceration of his esophagus. Primary differential diagnosis for these viral-appearing ulcerations of his esophagus ar e primarily in the herpes virus group, including HSV and CMV. Due to lack of systemic illness and no rmal labs, I believe CMV is less likely. 1. Would start acyclovir 5 mg/kg IV q.8 hours due to severe odynophagia. 2. Would send serologies of HSV, CMV, HIV, as hopefully this will reveal a diagnosis as the biopsy c an take a while to come back. 3. Discussed the importance of discontinuation drug use and discussed and reviewed that we are going to do a full STD panel. Plan of care was reviewed with Dr. Jennings, and will continue to see patient on a daily basis to monito r response to therapy. Thank you for this consultation. /[id number]/MODL
--- NOTE | 2018-06-26 18:03 | HOSPPROG ---
Hospitalist Progress Note Assessment/Plan: * Esophageal ulcerations -suspicious for viral - d/w Dr. Ontiveros -likely HSV - serologies pending -empiric IV acyclovir -continue BID IV PPI -Biopsies pending * Severe odynophagia -unable to take PO -advance diet as able * Chest pain -doubt cardiac -suspect all related to esophageal disease Subjective: Severe pain continues, can't even swallow his own saliva Objective: Vital Signs Temp Pulse Resp BP Pulse Ox 36.6 C 65 14 120/63 97 06/26/18 11:30 06/26/18 16:00 06/26/18 16:00 06/26/18 16:00 06/26/18 16:00 Laboratory Results 06/26/18 05:05 06/26/18 05:05 06/25/18 06/26/18 06/27/18 05:59 05:59 05:59 Intake Total 1000 Balance 1000 PT 14.1 SEC (12.0-15.0) 06/25/18 13:48 INR 1.07 (0.83-1.16) 06/25/18 13:48 EGD report viewed and images from EGD personally viewed - severe ulcerations ECHO - mild increased RV pressure CTA chest - no PE - Physical Exam Constitutional: no apparent distress, appears nourished, not in pain Cardiovascular: regular rate and rhythym, no murmur, rub, or gallop Respiratory: no respiratory distress, no rales or rhonchi, clear to auscultation Skin: no rashes or abrasions, no fluctuance, no induration Neurologic: AAOx3, sensation intact bilaterally Psychiatric: interacting appropriately, not anxious, not encephalopathic, thought process linear ICD10 Worksheet Patient Problems: Problems Problem Status Onset Abdominal pain Acute
--- NOTE | 2018-06-26 19:51 | PDMN ---
Medical Necessity Medical necessity: MCG: GRG Esophageal disease A-1 day: EGD shows massive esophageal ulceration and severe odynophagia,- biopsies/serologies pending- pt unable to tolerate PO, even his own saliva, status changed to INPT for ongoing med nec care, IV acyclovir, PPI, IVF, status changed 06/26/18 @ 13:05
[2018-06-27] MEDS: D5W IV SCH ×3 (05:58→20:56)
[2018-06-27] MEDS: ACYCLOVIR IV SCH ×3 (05:58→20:56)
[2018-06-27] MEDS: PANTOPRAZOLE SODIUM 40 MG VIAL IVP SCH ×2 (08:40→20:55)
--- NOTE | 2018-06-27 11:05 | SOAPPROG ---
SOAP Progress Note Assessment/Plan: Assessment: 1. Severe esophagitis with odynophagia and chest pain; likely viral. 2. Poor po intake secondary to #1. Plan: 1. Continue IV fluids and IV antivirals. 2. Await serologic results and Bx results. 3. Will follow with you. Virgil Yoder MD 06/27/18 11:05 Subjective: CC: Esophagitits. Interval HPI; [place] continues to c/o lower substernal chest discomfort and now odynophagia. Unable to tolerate any po intake. IV antiviral therapy in progress directed by MARLON AYON. Objective: Vital Signs Temp Pulse Resp BP Pulse Ox 36.7 C 70 16 109/66 92 06/27/18 08:00 06/27/18 08:00 06/27/18 08:00 06/27/18 08:00 06/27/18 08:00 PT 14.1 SEC (12.0-15.0) 06/25/18 13:48 INR 1.07 (0.83-1.16) 06/25/18 13:48 Physical Exam - Physical Exam General Appearance: WD/WN, alert, mild distress Respiratory: chest non-tender, lungs clear, normal breath sounds Cardiac/Chest: normal peripheral pulses, regular rate, rhythm Abdomen: normal bowel sounds, non-tender, soft Skin: normal color, warm/dry Neuro/Psych: no motor/sensory deficits, alert, normal mood/affect ICD10 Worksheet Patient Problems: Problems Problem Status Onset Abdominal pain Acute
--- NOTE | 2018-06-27 11:12 | PCMIDPN ---
Assessment/Plan: Assessment: Probable viral esophagitis. Patient was sleeping in the room and I did not awaken. Will continue the empiric IV acyclovir and follow his clinical course over time. Serologies are still pending. Pathology from endoscopy is still pending. Plan: 1. Continue empiric IV acyclovir. 2. Follow clinical course. 06/27/18 11:11 Subjective: Patient is sleeping in his room. Did not awaken. No reports of fevers. Objective: Acyclovir #1 Vital Signs Temp Pulse Resp BP Pulse Ox 36.7 C 70 16 109/66 92 06/27/18 08:00 06/27/18 08:00 06/27/18 08:00 06/27/18 08:00 06/27/18 08:00 - Physical Exam General Appearance: WD/WN ICD10 Worksheet Patient Problems: Problems Problem Status Onset Abdominal pain Acute
[2018-06-27] MEDS ORDERED: BENZOCAINE UNIT DOSE SPRAY HURRICAINE MM PRN (13:09)
[2018-06-27] MEDS ORDERED: CEPACOL LOZENGE PO PRN (13:09)
--- NOTE | 2018-06-27 15:45 | HOSPPROG ---
Hospitalist Progress Note Assessment/Plan: * Esophageal ulcerations - suspect viral -likely HSV - serologies pending -empiric IV acyclovir -continue BID IV PPI -Biopsies pending * Severe odynophagia -unable to take PO -advance diet as able * Chest pain -doubt cardiac -suspect all related to esophageal disease Subjective: Still no clear liquids, hasn't tried since last night but it went poorly. Starting to swallow his own saliva rather than spitting it out Objective: Vital Signs Temp Pulse Resp BP Pulse Ox 36.7 C 70 16 109/66 92 06/27/18 08:00 06/27/18 08:00 06/27/18 08:00 06/27/18 08:00 06/27/18 08:00 PT 14.1 SEC (12.0-15.0) 06/25/18 13:48 INR 1.07 (0.83-1.16) 06/25/18 13:48 - Physical Exam Constitutional: no apparent distress, appears nourished, not in pain Cardiovascular: regular rate and rhythym, no murmur, rub, or gallop Respiratory: no respiratory distress, no rales or rhonchi, clear to auscultation Gastrointestinal: normoactive bowel sounds, soft, non-tender abdomen, no palpable masses Skin: no rashes or abrasions, no fluctuance, no induration Neurologic: AAOx3, sensation intact bilaterally Psychiatric: interacting appropriately, not anxious, not encephalopathic, thought process linear ICD10 Worksheet Patient Problems: Problems Problem Status Onset Abdominal pain Acute
[2018-06-28] MEDS: LR 1,000 ML IV SCH ×2 (03:21→21:35)
[2018-06-28] MEDS: D5W IV SCH ×3 (05:41→21:32)
[2018-06-28] MEDS: ACYCLOVIR IV SCH ×3 (05:41→21:32)
[2018-06-28] MEDS: PANTOPRAZOLE SODIUM 40 MG VIAL IVP SCH ×2 (07:57→20:15)
--- NOTE | 2018-06-28 09:10 | SOAPPROG ---
SOAP Progress Note Assessment/Plan: Assessment: 1. Severe esophagitis with odynophagia and chest pain; likely viral. 2. Poor po intake secondary to #1, handling oral secretions but not liquid diet yet. Plan: 1. Continue IV fluids and IV antivirals. 2. Await serologic results and Bx results. 3. Will follow with you. Virgil Yoder MD 06/28/18 09:08 Subjective: CC: Viral esophagitis with odynophagia/dysphagia. Interval HPI: Able to handle secretions but not clears yet. No chest pain today. Objective: Vital Signs Temp Pulse Resp BP Pulse Ox 36.8 C 66 14 117/41 L 94 06/28/18 07:52 06/28/18 07:52 06/28/18 07:52 06/28/18 07:52 06/28/18 07:52 06/27/18 06/28/18 06/29/18 05:59 05:59 05:59 Intake Total 300 Balance 300 PT 14.1 SEC (12.0-15.0) 06/25/18 13:48 INR 1.07 (0.83-1.16) 06/25/18 13:48 Physical Exam - Physical Exam General Appearance: WD/WN, alert, no apparent distress Respiratory: chest non-tender, lungs clear, normal breath sounds Cardiac/Chest: normal peripheral pulses, regular rate, rhythm Abdomen: normal bowel sounds, non-tender, soft Skin: normal color, warm/dry Neuro/Psych: alert, normal mood/affect, oriented x 3 ICD10 Worksheet Patient Problems: Problems Problem Status Onset Abdominal pain Acute
--- NOTE | 2018-06-28 14:40 | PCMIDPN ---
Assessment/Plan: Assessment: Probable viral esophagitis. Patient was sleeping in the room and I did not awaken. Will continue the empiric IV acyclovir and follow his clinical course over time. Serologies are still pending. Pathology from endoscopy is still pending. Serology show positive isolated IgM for CMV. This is a possible etiology for his presentation. He does also have a relative monocytosis although mild. Plan: 1. Continue empiric IV acyclovir. 2. Follow clinical course. Subjective: Patient states that he is feeling much better. Decreased esophageal irritation. Still is not hungry though. He has been cleared to advance his diet to clear liquids. Objective: Acyclovir # 2 Vital Signs Temp Pulse Resp BP Pulse Ox 36.8 C 66 14 117/41 L 94 06/28/18 07:52 06/28/18 07:52 06/28/18 07:52 06/28/18 07:52 06/28/18 07:52 Laboratory Results 06/28/18 09:50 06/27/18 06/28/18 06/29/18 05:59 05:59 05:59 Intake Total 300 Balance 300 - Physical Exam General Appearance: WD/WN, alert, no apparent distress, non-toxic Respiratory: lungs clear, normal breath sounds, No respiratory distress Cardiac/Chest: regular rate, rhythm, No tachycardia Skin: normal color, warm/dry, No rash Neuro/Psych: alert, normal mood/affect, oriented x 3 ICD10 Worksheet Patient Problems: Problems Problem Status Onset Abdominal pain Acute
--- NOTE | 2018-06-28 17:08 | HOSPPROG ---
Hospitalist Progress Note Assessment/Plan: * Esophageal ulcerations - suspect viral - CMV IgM + -additional serologies pending -empiric IV acyclovir -continue BID IV PPI -Biopsies pending * Severe odynophagia -still unable to take PO -advance diet as able * Chest pain -doubt cardiac -suspect all related to esophageal disease Subjective: Still spitting out his own spit, has not taken anything yet Objective: Vital Signs Temp Pulse Resp BP Pulse Ox 36.9 C 72 16 133/72 H 97 06/28/18 15:46 06/28/18 15:46 06/28/18 15:46 06/28/18 15:46 06/28/18 15:46 Laboratory Results 06/28/18 09:50 06/27/18 06/28/18 06/29/18 05:59 05:59 05:59 Intake Total 300 Balance 300 PT 14.1 SEC (12.0-15.0) 06/25/18 13:48 INR 1.07 (0.83-1.16) 06/25/18 13:48 - Physical Exam Constitutional: no apparent distress, appears nourished, not in pain Cardiovascular: regular rate and rhythym, no murmur, rub, or gallop Respiratory: no respiratory distress, no rales or rhonchi, clear to auscultation Gastrointestinal: normoactive bowel sounds, soft, non-tender abdomen, no palpable masses Skin: no rashes or abrasions, no fluctuance, no induration Neurologic: AAOx3, sensation intact bilaterally Psychiatric: interacting appropriately, not anxious, not encephalopathic, thought process linear ICD10 Worksheet Patient Problems: Problems Problem Status Onset Abdominal pain Acute
[2018-06-28] MEDS: ACETAMINOPHEN 325 MG TAB PO PRN (17:31)
[2018-06-29] MEDS: D5W IV SCH ×2 (05:07→13:17)
[2018-06-29] MEDS: ACYCLOVIR IV SCH ×2 (05:07→13:17)
[2018-06-29] MEDS: PANTOPRAZOLE SODIUM 40 MG VIAL IVP SCH ×2 (08:10→21:08)
[2018-06-29] MEDS: LR 1,000 ML IV SCH (08:12)
[2018-06-29 11:34] LABS: HIV-1 RNA PCR < 1.00 copy/mL (<30)
[2018-06-29] MEDS: ACETAMINOPHEN 325 MG TAB PO PRN (13:20)
[2018-06-29] MEDS ORDERED: NS IV SCH (14:00)
[2018-06-29] MEDS ORDERED: GANCICLOVIR SODIUM IV SCH (14:00)
--- NOTE | 2018-06-29 14:25 | PCMIDPN ---
Assessment/Plan: Ulcerative esophagitis, unclear etiology differential diagnosis HSV, CMV, autoimmune. Personally reviewed path today and patient has deep ulcers into the serosal layer with some evidence of vasculitis. Hard to interpret IgM in peripheral blood due to false positive rate. Patient states clinical improvement by 80% and is eating regular food. Feels that acyclovir has possibly helped him. Past more clinically consistent with CMV due to depth of ulcerations but complete lack of viral inclusions and/or giant cells seems atypical --transition to p.o. Valtrex 1 g p.o. Twice daily --biopsy was sent out to [place] for viral studies. --add on autoimmune panel including ANCA as an REGLA --check CBC and CMP in the a.m. --if eating okay tomorrow in tolerating Valtrex tablet okay to discharge and follow up with laboratory studies as an outpatient. Would give a total of 10 days of antiviral therapy (Valtrex 1 p.o. Twice daily). Medications Acyclovir, # 3/ Subjective: Patient reports feeling 80% better and is eating some solid foods. No other symptoms have evolved. Patient strongly wants to go home as soon as possible Objective: Vital Signs Temp Pulse Resp BP Pulse Ox 36.8 C 63 16 115/72 96 06/29/18 07:34 06/29/18 07:34 06/29/18 07:34 06/29/18 07:34 06/29/18 07:34 Laboratory Results 06/28/18 09:50 06/28/18 06/29/18 06/30/18 05:59 05:59 05:59 Intake Total 300 Balance 300 - Physical Exam General Appearance: alert, no apparent distress Respiratory: No accessory muscle use Skin: No rash Neuro/Psych: alert, normal mood/affect, oriented x 3 - Time Spent With Patient Time Spent with Patient: greater than 35 minutes (Coordinating care with hospitalist and pathology) Time Spent with Patient: Greater than 35 minutes spent on this patients care, greater than 50% of time spent counseling, educating, and coordinating care regarding the above mentioned plan. ICD10 Worksheet Patient Problems: Problems Problem Status Onset Abdominal pain Acute
--- NOTE | 2018-06-29 14:53 | SOAPPROG ---
SOAP Progress Note Assessment/Plan: Assessment: 1. Severe esophagitis with odynophagia and chest pain; likely CMV as IGM +. 2. Poor po intake secondary to #1, handling clears somewhat today Plan: 1. Continue IV fluids and IV antivirals. 2. Await serologic results and Bx results. 3. Will sign off today, please call me for further GI issues. Virgil Yoder MD 06/29/18 14:50 Subjective: CC: Viral esophagitis. Interval HPI: Slept well last night. No chest pain, less odynophagia, tolerating jello today. Objective: Vital Signs Temp Pulse Resp BP Pulse Ox 36.8 C 63 16 115/72 96 06/29/18 07:34 06/29/18 07:34 06/29/18 07:34 06/29/18 07:34 06/29/18 07:34 Laboratory Results 06/28/18 09:50 06/28/18 06/29/18 06/30/18 05:59 05:59 05:59 Intake Total 300 Balance 300 PT 14.1 SEC (12.0-15.0) 06/25/18 13:48 INR 1.07 (0.83-1.16) 06/25/18 13:48 CMV IgM+ Physical Exam - Physical Exam General Appearance: WD/WN, alert, no apparent distress Respiratory: chest non-tender, lungs clear, normal breath sounds Cardiac/Chest: normal peripheral pulses, regular rate, rhythm, edema Abdomen: normal bowel sounds, non-tender, soft Skin: normal color, warm/dry Neuro/Psych: no motor/sensory deficits, alert, normal mood/affect ICD10 Worksheet Patient Problems: Problems Problem Status Onset Abdominal pain Acute
--- NOTE | 2018-06-29 15:20 | ASMTCMCOM ---
CM Note CM Note Notes: Patient finally beginning to tolerate clears and some PO. He will likely discharge tomorrow on oral antivirals and follow up with ID. No Case Management needs identified. Date Signed: 06/29/2018 03:19 PM Electronically Signed By:Johnna Smith RN
--- NOTE | 2018-06-29 18:22 | HOSPPROG ---
Hospitalist Progress Note Assessment/Plan: * Esophageal ulcerations - viral vs. autoimmune -CMV and HSV IgM positive but unclear if true positive -biopsy not typical for HSV or CMV, possible vasculitis -further stains pending on biopsy (to [place]) -ANCA and REGLA pending -continue IV PPI BID -changed to PO Valtrex -no steroids until infection definitively ruled out (by final biopsy result) -possible DC in am with ID follow up if tolerating PO * Severe odynophagia -advance diet as able * Chest pain -doubt cardiac -suspect all related to esophageal disease Subjective: trying solids for the first time Objective: Vital Signs Temp Pulse Resp BP Pulse Ox 37.0 C 87 16 124/65 H 94 06/29/18 15:24 06/29/18 15:24 06/29/18 15:24 06/29/18 15:24 06/29/18 15:24 Laboratory Results 06/28/18 09:50 06/28/18 06/29/18 06/30/18 05:59 05:59 05:59 Intake Total 300 Balance 300 PT 14.1 SEC (12.0-15.0) 06/25/18 13:48 INR 1.07 (0.83-1.16) 06/25/18 13:48 d/w Dr. Ontiveros at length regarding possible diagnosis on the very difficult case - Time Spent With Patient Time Spent with Patient: greater than 35 minutes Time Spent with Patient: Greater than 35 minutes spent on this patients care, greater than 50% of time spent counseling, educating, and coordinating care regarding the above mentioned plan. - Physical Exam Constitutional: no apparent distress, appears nourished, not in pain Cardiovascular: regular rate and rhythym, no murmur, rub, or gallop Respiratory: no respiratory distress, no rales or rhonchi, clear to auscultation Gastrointestinal: normoactive bowel sounds, soft, non-tender abdomen, no palpable masses Skin: no rashes or abrasions, no fluctuance, no induration Neurologic: AAOx3, sensation intact bilaterally Psychiatric: interacting appropriately, not anxious, not encephalopathic, thought process linear ICD10 Worksheet Patient Problems: Problems Problem Status Onset Abdominal pain Acute
[2018-06-29] MEDS: valACYclovir 500 MG TAB PO SCH (21:08)
[2018-06-30 01:42] LABS: HIV TYPE 1 AND 2 NEGATIVE (NEGATIVE)
[2018-06-30 06:15] LABS: PLATELET COUNT 336 10^3/uL (150-400)
[2018-06-30 08:41] VITALS: BP 98/57
--- NOTE | 2018-06-30 08:57 | HOSPPROG ---
Hospitalist Progress Note Assessment/Plan: * Esophageal ulcerations - viral vs. autoimmune -CMV and HSV IgM positive but unclear if true positive -biopsy not typical for HSV or CMV, possible vasculitis -further stains pending on biopsy (to [place]) -ANCA and REGLA pending -PPI daily x 2 months (reviewed w GI ) -changed to PO Valtrex #02/09 -no steroids until infection definitively ruled out (by final biopsy result) -dc w close f/u with ID * Severe odynophagia -advance diet as able * Chest pain -no further complaint -suspect all related to esophageal disease *Plan: dc home with f/u with Dr Ontiverso, reviewed w Dr Yoder and he recommends 2 months of Protonix daily Subjective: Betzy is feeling much better, eating and drinking without difficulty. Objective: Vital Signs Temp Pulse Resp BP Pulse Ox 36.6 C 78 18 98/57 L 92 06/30/18 08:38 06/30/18 08:38 06/30/18 08:38 06/30/18 08:38 06/30/18 08:38 Laboratory Results 06/30/18 05:51 06/30/18 05:51 PT 14.1 SEC (12.0-15.0) 06/25/18 13:48 INR 1.07 (0.83-1.16) 06/25/18 13:48 - Physical Exam Constitutional: no apparent distress Eyes: PERRL Ears, Nose, Mouth, Throat: hearing normal Cardiovascular: regular rate and rhythym Respiratory: no respiratory distress Gastrointestinal: normoactive bowel sounds Skin: warm Musculoskeletal: full muscle strength Neurologic: AAOx3 Psychiatric: interacting appropriately ICD10 Worksheet Patient Problems: Problems Problem Status Onset Abdominal pain Acute
[2018-06-30] MEDS: PANTOPRAZOLE SODIUM 40 MG VIAL IVP SCH ×2 (09:16→09:46)
[2018-06-30] MEDS: valACYclovir 500 MG TAB PO SCH (09:16)
--- NOTE | 2018-06-30 10:45 | GDS ---
[f rep st] DISCHARGE SUMMARY DISCHARGE DIAGNOSES: 1. Esophageal ulcerations, viral versus autoimmune. 2. Severe odynophagia. 3. Chest pain. CONSULTATIONS: 1. Virgil Yoder MD. 2. Amanda Ontiveros MD. HOSPITAL COURSE: The patient is a 22-year-old male with no major past medical history. He presented to the emergency room over the last several days with complaints of epigastric pain. He had a viral -like symptom approximately 1 week prior to his admission and had fever, chills, nasal congestion, an d cough. Then, the symptoms abated. He then started having problems with vomiting. He was seen and evaluated by Dr. Yoder for evaluation of his epigastric and abdominal pain. He was started on PPI therapy and had an EGD. His upper GI showed nonbleeding esophageal ulcers that were biopsied. H is stomach was noted to be normal, and his duodenum was noted to be normal. Subsequently, he was manohar luated by the infectious disease team because of his esophageal ulcerations and severe odynophagia. Concern was about treatment. He has multiple labs pending. He was started on acyclovir with much im provement. Today, he will be discharged home and further follow up with Dr. Ontiveros and follow up wit h his PCP. HOSPITAL COURSE: 1. Esophageal ulcerations, viral versus autoimmune. His CMV and HSV IgM are positive, but unclear i f true positive. His ANCA and REGLA are pending. I reviewed with Dr. Yoder the recommendations f or him to continue a PPI for the next 2 months. He will be on Valtrex for a total of 10 days. 2. Severe odynophagia. He has been eating and drinking well. 3. Chest pain. Suspect this is all related to esophageal disease. He has been eating and drinking well. DISCHARGE CONDITION: Stable. Blood pressure is 120/74, heart rate is 75, respiratory rate is 16, O2 sats on room air 91%, temperature is 36.7 Celsius. MEDICATIONS AT DISCHARGE: Please see the EMR. DISCHARGE INSTRUCTIONS: 1. To continue the acyclovir as noted. 2. He has multiple pending labs to further follow up with Dr. Ontiveros. 3. To take the PPI daily. 4. Okay to return to school tomorrow as long as he is feeling well. /[id number]/MODL
== END 2018-06-30 10:24 | disposition home or self-care (01) | DRG 382 ==
LOC: F3E 15:27 → OBSVTOIN 06-26 13:05
PROVIDERS: ADMIT Internal Medicine; ATTEND Internal Medicine
PROC: 0DB18ZX Excision of Upper Esophagus, Via Natural or Artificial Opening Endoscopic, Diagnostic (ICD-10-PCS; principal; 2018-06-26 11:00)
PROC: 0DB68ZX Excision of Stomach, Via Natural or Artificial Opening Endoscopic, Diagnostic (ICD-10-PCS; principal; 2018-06-26 11:00)
DX: K22.10 Ulcer of esophagus without bleeding (principal); B34.9 Viral infection, unspecified; M35.9 Systemic involvement of connective tissue, unspecified; R10.13 Epigastric pain; R13.12 Dysphagia, oropharyngeal phase; K92.1 Melena; R07.9 Chest pain, unspecified
CPT/HCPCS: 82784-90; 83516-90; 83520-90; 86644-90; 86645-90; 86664-90; 86665-90; 86694-90; 87536-90; 96374; G0378; J0133; J2405; J2704